=== PATIENT | male | born 1940 | race Caucasian/White ===

== ENCOUNTER 2017-08-29 20:04 | Emergency (ER) | payer MEDICARE ==
[~2017-08-29] VITALS: Ht 182.9 cm; Wt 120.0 kg
[~2017-08-29 20:04] MED LIST: ALLOPURINOL100 MG PO; ALLOPURINOL300 MG OR; AMLODIPINE5 MG PO; ATENOLOL50 MG OR; DILTIAZEM120 MG PO; FINASTERIDE5 MG PO; HYDROCHLOROT12.5 MG PO; ICAPS LUTEI1 OR; KLOR-CON 1010 MEQ PO; LISINOPRIL20 MG PO; MEDDOSEPAK PO; METFORMIN500 MG PO; NEURONTIN300 MG PO; TAMSULOSIN0.4 MG PO; TERAZOSIN5 MG PO; ULTRAM50 MG OR; VALSARTAN80 MG PO
[2017-08-29] MEDS ORDERED: ALLOPURINOL100 MG PO (20:24)
[2017-08-29 20:56] LABS: HEMATOCRIT 42.3 % (39.0-50.0); HEMOGLOBIN 14.6 g/dl (14.0-18.0); IMMATURE GRANULOCYTES 0.3 % (0.0-1.0); MEAN CELL VOLUME 91.6 fL CALC (80.0-100.0); MEAN CORPUSCULAR HGB 31.6 pG CALC (26.0-32.0); MEAN CORPUSCULAR HGB CONC 34.5 g/L CALC (32.0-36.0); NEUT# 3.47 thou/uL (1.82-7.42); RED BLOOD COUNT 4.62 mill/uL (4.70-6.10); RED CELL DISTRI WIDTH 12.8 % (11.5-15.5)
[2017-08-29 21:02] LABS: ALBUMIN 4.6 g/dL (3.2-5.0); ALKALINE PHOSPHATASE 119 u/l (38-126); ANION GAP 19 (6-22 (CALC)); BUN 13 mg/dL (8-23); BUN/CREATININE RATIO 10 (12-20 (CALC)); CALCIUM 9.8 mg/dL (8.4-10.2); CARBON DIOXIDE 23 mmol/l (22-30); CHLORIDE 106 mmol/l (95-108); CREATININE 1.4 mg/dL (0.7-1.3); GFR 49 ML/MIN (>=60 (CALC)); GFR FOR AFR.AMER. 60 ML/MIN (>=60 (CALC)); GLUCOSE 186 mg/dL (82-115); POTASSIUM 3.9 mmol/l (3.5-5.1); SGOT/AST 57 u/l (19-48); SGPT/ALT 44 u/l (11-66); SODIUM 143 mmol/l (137-146); TOTAL PROTEIN 7.5 g/dL (6.3-8.2)
[2017-08-29 23:30] VITALS: BP 148/75
[2017-08-30] MEDS ORDERED: PRECOSE50 MG PO (13:49)
[2017-08-30] MEDS ORDERED: ICAPS PO (13:52)
[2017-08-30] MEDS ORDERED: HYDRALAZINE50 MG PO (15:48)
== END 2017-08-29 23:17 | disposition home or self-care (01) ==
LOC: ED 20:04
PROVIDERS: Emergency Medicine
DX: I10 Essential (primary) hypertension (principal); R07.89 Other chest pain; R51 Headache; H35.30 Unspecified macular degeneration; H54.62 Unqualified visual loss, left eye, normal vision right eye; E11.9 Type 2 diabetes mellitus without complications; M10.9 Gout, unspecified; Z87.442 Personal history of urinary calculi

== ENCOUNTER 2017-08-30 13:10 | Emergency (ER) | payer MEDICARE ==
[~2017-08-30] VITALS: Ht 182.9 cm; Wt 120.0 kg
[2017-08-30] MEDS ORDERED: PRECOSE50 MG PO (13:49)
[2017-08-30] MEDS ORDERED: ICAPS PO (13:52)
[2017-08-30 14:15] LABS: HEMATOCRIT 40.7 % (39.0-50.0); HEMOGLOBIN 14.1 g/dl (14.0-18.0); IMMATURE GRANULOCYTES 0.3 % (0.0-1.0); MEAN CELL VOLUME 91.9 fL CALC (80.0-100.0); MEAN CORPUSCULAR HGB 31.8 pG CALC (26.0-32.0); MEAN CORPUSCULAR HGB CONC 34.6 g/L CALC (32.0-36.0); NEUT# 3.45 thou/uL (1.82-7.42); RED BLOOD COUNT 4.43 mill/uL (4.70-6.10); RED CELL DISTRI WIDTH 13.1 % (11.5-15.5)
[2017-08-30 14:51] LABS: ALBUMIN 4.3 g/dL (3.2-5.0); ALKALINE PHOSPHATASE 88 u/l (38-126); ANION GAP 16 (6-22 (CALC)); BILIRUBIN, TOTAL 1.4 mg/dL (0.0-1.4); BUN 12 mg/dL (8-23); BUN/CREATININE RATIO 9 (12-20 (CALC)); CALCIUM 9.3 mg/dL (8.4-10.2); CARBON DIOXIDE 23 mmol/l (22-30); CHLORIDE 109 mmol/l (95-108); CREATININE 1.3 mg/dL (0.7-1.3); GFR 54 ML/MIN (>=60 (CALC)); GFR FOR AFR.AMER. > 60 ML/MIN (>=60 (CALC)); GLUCOSE 135 mg/dL (82-115); POTASSIUM 3.7 mmol/l (3.5-5.1); SGOT/AST 61 u/l (19-48); SGPT/ALT 43 u/l (11-66); SODIUM 144 mmol/l (137-146); TOTAL PROTEIN 7.1 g/dL (6.3-8.2)
[2017-08-30 15:03] LABS: MYOGLOBIN 142 ng/mL (0 - 121)
[2017-08-30] MEDS ORDERED: HYDRALAZINE50 MG PO (15:48)
[2017-08-30 15:56] VITALS: BP 190/83
== END 2017-08-30 16:14 | disposition home or self-care (01) ==
LOC: ED 13:10
PROVIDERS: Emergency Medicine
DX: I10 Essential (primary) hypertension (principal); R51 Headache; R00.1 Bradycardia, unspecified

== ENCOUNTER 2017-09-19 00:08 | Observation (INO) | payer MEDICARE ==
[~2017-09-19] VITALS: Ht 182.9 cm; Wt 109.4 kg
[~2017-09-19 00:08] MED LIST changes: +HYDRALAZINE50 MG PO; +ICAPS PO; +PRECOSE50 MG PO
--- NOTE | 2017-09-19 00:27 | NUR ---
PT. AMBULATORY WITH STEADY GAIT TO TREATMENT ROOM.
--- NOTE | 2017-09-19 01:20 | NUR ---
BEDRESTING. AWAITING MD SOLIS. DENIES H/A OR PAIN AT THIS TIME
[2017-09-19 02:09] LABS: HEMATOCRIT 42.5 % (39.0-50.0); HEMOGLOBIN 14.8 g/dl (14.0-18.0); IMMATURE GRANULOCYTES 0.3 % (0.0-1.0); MEAN CORPUSCULAR HGB 31.7 pG CALC (26.0-32.0); MEAN CORPUSCULAR HGB CONC 34.8 g/L CALC (32.0-36.0); NEUT# 3.31 thou/uL (1.82-7.42); RED BLOOD COUNT 4.67 mill/uL (4.70-6.10); RED CELL DISTRI WIDTH 12.3 % (11.5-15.5)
--- NOTE | 2017-09-19 02:22 | NUR ---
DENIES CHEST TYLER N AT THIS TIME. STATES IT WAS NOT NEARLY A BAD TONIGHT COMPARED TO VASHTI GUANAKO
[2017-09-19 02:24] LABS: ALBUMIN 4.4 g/dL (3.2-5.0); ALKALINE PHOSPHATASE 115 u/l (38-126); ANION GAP 18 (6-22 (CALC)); BUN 12 mg/dL (8-23); BUN/CREATININE RATIO 8 (12-20 (CALC)); CALCIUM 10.8 mg/dL (8.4-10.2); CARBON DIOXIDE 22 mmol/l (22-30); CHLORIDE 108 mmol/l (95-108); CREATININE 1.4 mg/dL (0.7-1.3); GFR 49 ML/MIN (>=60 (CALC)); GFR FOR AFR.AMER. 60 ML/MIN (>=60 (CALC)); GLUCOSE 118 mg/dL (82-115); POTASSIUM 4.2 mmol/l (3.5-5.1); SGOT/AST 48 u/l (19-48); SGPT/ALT 42 u/l (11-66); SODIUM 143 mmol/l (137-146); TOTAL PROTEIN 7.3 g/dL (6.3-8.2)
[2017-09-19 02:36] LABS: MYOGLOBIN 45 ng/mL (0 - 121)
--- NOTE | 2017-09-19 03:15 | NUR ---
REPORT CALLED TO SEAN MEDINA
--- NOTE | 2017-09-19 03:30 | NUR ---
TO [facility] VIA W/C. ALERT. COOPERATIVE. NO DISTRESS NOTED. DENIES CHEST PAIN
--- NOTE | 2017-09-19 04:40 | NUR ---
RECEIVED FROM ER VIA W/C ACCOMPANIED BY SAM AMADOR, AMBULATING TO BED WITH STEADY GAIT, DX C/P AND UNCONTROLLED HTN. A/O X3, RESPIRATIONS EVEN AND UNLABORED. DENIES CHEST PAIN OR PALPITATIONS, TELE IN PLACE SB 50'S PER ER. B/P 150/76. ORIENTED TO BED CONTROLS AND CALL LIGHT. PO FLUIDS AT BED SIDE. WILL CONTINUE TO MONITOR.
[2017-09-19 04:45] VITALS: BP 150/76
--- NOTE | 2017-09-19 07:16 | NUR ---
BEDSIDE REPORT RECEIVED FROM SEAN MEDINA. PT SUPINE IN BED. REPORTS SEVERE HEADACHE. NITRO PATCH REMOVED BY SEAN MEDINA FROM LEFT UPPER ARM. PT EDUCATED ON POSSIBLE SIDE EFFECTS OF NITRO. PLAN OF CARE DISCUSSED. REPORTING OF CONCERNS ENCOURAGED. CALL LIGHT REVIEWED AND IN REACH. PT STATES UNDERSTANDING.
[2017-09-19 07:25] VITALS: BP 124/65
--- NOTE | 2017-09-19 08:45 | NUR ---
SPOKE WITH DR. HOWELL R/T HEADACHE. ORDER FOR TYLENOL GIVEN. MED ADMINISTERED. WILL CONTINUE TO MONITOR FOR EFFECTIVENESS.
[2017-09-19 10:08] VITALS: BP 149/65
[2017-09-19 10:09] VITALS: BP 149/65
--- NOTE | 2017-09-19 10:59 | NUR ---
DR. HOWELL IN TO SEE PT AT THIS TIME.
--- NOTE | 2017-09-19 13:02 | NUR ---
Discharge instructions given. Patient verbalizes understanding of same. Discharged in stable condition via Ambulatory to Home with spouse. All belongings sent with pt.
== END 2017-09-19 12:54 | disposition home or self-care (01) ==
LOC: ED 00:08 → ED-I 02:00 → ED 03:12 → MS2 03:13
PROVIDERS: Emergency Medicine; ADMIT Internal Medicine; ATTEND Internal Medicine
DX: I16.1 Hypertensive emergency (principal); I10 Essential (primary) hypertension; K21.9 Gastro-esophageal reflux disease without esophagitis; E11.9 Type 2 diabetes mellitus without complications; M10.9 Gout, unspecified; Z87.442 Personal history of urinary calculi; Z87.891 Personal history of nicotine dependence; R07.9 Chest pain, unspecified

== ENCOUNTER 2017-11-04 15:15 | Emergency (ER) | payer MEDICARE ==
[~2017-11-04] VITALS: Ht 182.9 cm; Wt 109.8 kg
[2017-11-04] MEDS ORDERED: AUGMENTIN875TAB PO (15:37)
[2017-11-04 16:55] VITALS: BP 157/74
== END 2017-11-04 16:55 | disposition home or self-care (01) ==
LOC: ED 15:15
DX: S81.852A Open bite, left lower leg, initial encounter (principal); W54.0XXA Bitten by dog, initial encounter; Y93.I9 Activity, other involving external motion; Y92.414 Local residential or business street as the place of occurrence of the external cause

== ENCOUNTER 2017-12-23 08:48 | Observation (INO) | payer MEDICARE ==
[~2017-12-23] VITALS: Ht 182.9 cm; Wt 105.9 kg
[~2017-12-23 08:48] MED LIST changes: +AUGMENTIN875TAB PO
[2017-12-23 09:08] LABS: HEMATOCRIT 45.4 % (39.0-50.0); HEMOGLOBIN 15.6 g/dl (14.0-18.0); IMMATURE GRANULOCYTES 0.3 % (0.0-1.0); MEAN CELL VOLUME 89.9 fL CALC (80.0-100.0); MEAN CORPUSCULAR HGB 30.9 pG CALC (26.0-32.0); MEAN CORPUSCULAR HGB CONC 34.4 g/L CALC (32.0-36.0); NEUT# 3.71 thou/uL (1.82-7.42); RED BLOOD COUNT 5.05 mill/uL (4.70-6.10); RED CELL DISTRI WIDTH 13.4 % (11.5-15.5)
[2017-12-23 09:26] LABS: ALBUMIN 4.6 g/dL (3.2-5.0); ALKALINE PHOSPHATASE 117 u/l (38-126); ANION GAP 20 (6-22 (CALC)); BILIRUBIN, TOTAL 1.5 mg/dL (0.0-1.4); BUN 12 mg/dL (8-23); BUN/CREATININE RATIO 9 (12-20 (CALC)); CARBON DIOXIDE 22 mmol/l (22-30); CHLORIDE 105 mmol/l (95-108); CREATININE 1.5 mg/dL (0.7-1.3); GFR 46 ML/MIN (>=60 (CALC)); GFR FOR AFR.AMER. 55 ML/MIN (>=60 (CALC)); LIPASE 139 u/l (23-300); POTASSIUM 3.8 mmol/l (3.5-5.1); SGOT/AST 56 u/l (19-48); SGPT/ALT 47 u/l (11-66); SODIUM 143 mmol/l (137-146); TOTAL PROTEIN 8.6 g/dL (6.3-8.2)
[2017-12-23 10:15] LABS: URINE BILIRUBIN - DIPSTICK NEGATIVE (NEGATIVE); URINE BLOOD DIPSTICK NEGATIVE (NEGATIVE); URINE CLARITY CLEAR; URINE COLOR YELLOW; URINE GLUCOSE - DIPSTICK NEGATIVE (NEGATIVE); URINE KETONE NEGATIVE (NEGATIVE); URINE LEUK ESTERASE NEGATIVE (NEGATIVE); URINE NITRITE - DIPSTICK NEGATIVE (Negative); URINE PH 6.5 (4.5-8.0); URINE PROTEIN - DIPSTICK NEGATIVE (NEG-TRACE); URINE UROBILINOGEN - DIPSTICK 0.2 E.U./dL (0.2)
[2017-12-23] MEDS ORDERED: JANUVIA100 MG PO (12:22)
[2017-12-23 12:34] VITALS: BP 183/86
[2017-12-23 16:50] VITALS: BP 163/86
[2017-12-23 19:39] VITALS: BP 152/84
[2017-12-24 00:07] VITALS: BP 151/71
[2017-12-24 05:01] VITALS: BP 142/66
[2017-12-24 06:28] LABS: HEMATOCRIT 44.1 % (39.0-50.0); HEMOGLOBIN 15.2 g/dl (14.0-18.0); MEAN CELL VOLUME 89.3 fL CALC (80.0-100.0); MEAN CORPUSCULAR HGB 30.8 pG CALC (26.0-32.0); MEAN CORPUSCULAR HGB CONC 34.5 g/L CALC (32.0-36.0); RED BLOOD COUNT 4.94 mill/uL (4.70-6.10); RED CELL DISTRI WIDTH 13.7 % (11.5-15.5)
[2017-12-24 06:44] LABS: CHOLESTEROL HDL RATIO 4.2 (<4.4 (CALC))
[2017-12-24 06:45] LABS: CREATININE 1.4 mg/dL (0.7-1.3); MAGNESIUM 1.9 mg/dL (1.6-2.3); POTASSIUM 4.3 mmol/l (3.5-5.1)
[2017-12-24 08:46] VITALS: BP 146/77
[2017-12-24 11:00] VITALS: BP 121/74
[2017-12-24] MEDS ORDERED: ADLT ASA LOW81 MG PO (12:50)
[2017-12-24] MEDS ORDERED: RESTORIL7.5 MG PO (12:51)
== END 2017-12-24 14:28 ==
LOC: ED 08:48 → ED-I 10:11 → ED 10:11 → ED-I 11:30 → ED 11:40 → MS2 11:41
PROVIDERS: Family Medicine; Nurse Practitioner Family; ADMIT Internal Medicine; ATTEND Internal Medicine
DX: R07.9 Chest pain, unspecified (principal); I16.0 Hypertensive urgency; I10 Essential (primary) hypertension; E11.9 Type 2 diabetes mellitus without complications; M10.9 Gout, unspecified; H35.30 Unspecified macular degeneration; N40.1 Benign prostatic hyperplasia with lower urinary tract symptoms; R35.0 Frequency of micturition; R39.15 Urgency of urination; G47.00 Insomnia, unspecified; F43.22 Adjustment disorder with anxiety; Z87.442 Personal history of urinary calculi; Z87.891 Personal history of nicotine dependence
CPT/HCPCS: Q9967

== ENCOUNTER → 2018-06-12 | Outpatient (REF) ==
[~2018-06-12] MED LIST changes: +ADLT ASA LOW81 MG PO; +JANUVIA100 MG PO; +RESTORIL7.5 MG PO
== END | disposition home or self-care (01) | DRG 684 ==
LOC: LAB 07:22
PROVIDERS: ATTEND Nurse Practitioner Adult Health
DX: N18.3 Chronic kidney disease, stage 3 (moderate) (principal); E11.9 Type 2 diabetes mellitus without complications; I10 Essential (primary) hypertension

== ENCOUNTER 2018-08-13 06:59 | Day surgery (SDC) | payer MEDICARE ==
[~2018-08-13 06:59] MED LIST changes: +ALPRAZOLAM0.25 MG PO; +BUPROPION300 MG PO
[2018-08-13 09:59] VITALS: BP 157/67
== END 2018-08-13 09:50 | disposition home or self-care (01) ==
LOC: ENDO 06:59 → ORM 13:25 → ENDO 13:25 → ORM 14:15
PROVIDERS: ATTEND Internal Medicine Gastroenterology
PROC: 0D748ZZ Dilation of Esophagogastric Junction, Via Natural or Artificial Opening Endoscopic (ICD-10-PCS; principal; 2018-08-13)
PROC: 0DB78ZX Excision of Stomach, Pylorus, Via Natural or Artificial Opening Endoscopic, Diagnostic (ICD-10-PCS; 2018-08-13)
DX: K22.2 Esophageal obstruction (principal); K29.50 Unspecified chronic gastritis without bleeding; K25.9 Gastric ulcer, unspecified as acute or chronic, without hemorrhage or perforation; B96.81 Helicobacter pylori [H. pylori] as the cause of diseases classified elsewhere; I10 Essential (primary) hypertension; E11.9 Type 2 diabetes mellitus without complications

== ENCOUNTER 2018-08-22 20:58 | Emergency (ER) | payer MEDICARE ==
[~2018-08-22] VITALS: Ht 182.9 cm; Wt 99.2 kg
[2018-08-22 22:14] LABS: HEMATOCRIT 39.7 % (39.0-50.0); HEMOGLOBIN 13.4 g/dl (14.0-18.0); IMMATURE GRANULOCYTES 0.5 % (0.0-5.0); MEAN CELL VOLUME 91.5 fL CALC (80.0-100.0); MEAN CORPUSCULAR HGB 30.9 pG CALC (26.0-32.0); MEAN CORPUSCULAR HGB CONC 33.8 g/L CALC (32.0-36.0); NEUT# 8.68 thou/uL (1.82-7.42); RED BLOOD COUNT 4.34 mill/uL (4.70-6.10); RED CELL DISTRI WIDTH 12.8 % (11.5-15.5)
[2018-08-22 22:35] LABS: BILIRUBIN, TOTAL 0.7 mg/dL (0.0-1.4); CREATININE 1.4 mg/dL (0.7-1.3); POTASSIUM 4.4 mmol/l (3.5-5.1); TOTAL PROTEIN 7.5 g/dL (6.3-8.2)
[2018-08-22] MEDS ORDERED: ZOFRAN ODT4 MG PO (22:47)
[2018-08-22 23:31] LABS: URINE BILIRUBIN - DIPSTICK NEGATIVE (NEGATIVE); URINE BLOOD DIPSTICK NEGATIVE (NEGATIVE); URINE COLOR YELLOW; URINE GLUCOSE - DIPSTICK NEGATIVE (NEGATIVE); URINE KETONE NEGATIVE (NEGATIVE); URINE LEUK ESTERASE NEGATIVE (NEGATIVE); URINE NITRITE - DIPSTICK NEGATIVE (Negative); URINE PROTEIN - DIPSTICK NEGATIVE (NEG-TRACE); URINE UROBILINOGEN - DIPSTICK 0.2 E.U./dL (0.2)
[2018-08-23 00:01] VITALS: BP 143/69
== END 2018-08-22 23:59 | disposition home or self-care (01) ==
LOC: ED 20:58
PROVIDERS: Emergency Medicine
DX: J11.1 Influenza due to unidentified influenza virus with other respiratory manifestations (principal); J02.0 Streptococcal pharyngitis; R11.10 Vomiting, unspecified; R50.9 Fever, unspecified; R55 Syncope and collapse; I10 Essential (primary) hypertension

== ENCOUNTER 2019-10-15 16:54 | Observation (INO) | payer MEDICARE ==
[~2019-10-15] VITALS: Ht 182.9 cm; Wt 100.0 kg
[~2019-10-15 16:54] MED LIST changes: +ZOFRAN ODT4 MG PO
--- NOTE | 2019-10-15 16:54 | NUR ---
PT IMMEADIATELY TO TX AREA VIA WC
--- NOTE | 2019-10-15 17:30 | NUR ---
PT RESTING ON STRETCHER; NO S/S OF DISTRESS NOTED; MONITORING DEVICES IN PLACE; FAMILY AT BEDSIDE
[2019-10-15 17:37] LABS: LIPASE 109 u/l (23-300)
[2019-10-15 17:49] LABS: ACT PARTIAL THROMBO TIME 27.7 SECONDS (20.0-32.5); INTERNATIONAL NORMALIZED RATIO 1.1 RATIO (0.7-1.3); PROTHROMBIN TIME 11.2 SECONDS (9.0-12.5)
[2019-10-15 18:13] LABS: ALBUMIN 4.7 g/dL (3.2-5.0); ALKALINE PHOSPHATASE 110 u/l (38-126); ANION GAP 17 (6-22 (CALC)); BUN 14 mg/dL (8-23); BUN/CREATININE RATIO 11 (12-20 (CALC)); CARBON DIOXIDE 21 mmol/l (22-30); CHLORIDE 106 mmol/l (95-108); CREATININE 1.3 mg/dL (0.7-1.3); GFR 53 ML/MIN (>=60 (CALC)); GFR FOR AFR.AMER. > 60 ML/MIN (>=60 (CALC)); POTASSIUM 4.3 mmol/l (3.5-5.1); SGOT/AST 41 u/l (19-48); SODIUM 140 mmol/l (137-146); TOTAL PROTEIN 8.5 g/dL (6.3-8.2)
[2019-10-15 18:15] LABS: HEMATOCRIT 43.7 % (39.0-50.0); HEMOGLOBIN 14.7 g/dl (14.0-18.0); IMMATURE GRANULOCYTES 0.3 % (0.0-5.0); MEAN CELL VOLUME 89.5 fL CALC (80.0-100.0); MEAN CORPUSCULAR HGB 30.1 pG CALC (26.0-32.0); MEAN CORPUSCULAR HGB CONC 33.6 g/L CALC (32.0-36.0); NEUT# 4.3 thou/uL (1.82-7.42); RED BLOOD COUNT 4.88 mill/uL (4.70-6.10); RED CELL DISTRI WIDTH 13.2 % (11.5-15.5)
--- NOTE | 2019-10-15 18:30 | NUR ---
PT SITTING UP ON STRETCHER; STATES CP HAS IMPROVED; MONITORING DEVICES IN PLACE; CALL LIGHT WITHIN REACH
[2019-10-15 18:31] LABS: BILIRUBIN, TOTAL 1.4 mg/dL (0.0-1.4)
[2019-10-15] MEDS ORDERED: ZOLPIDEM5 M1 PO (18:50)
--- NOTE | 2019-10-15 18:52 | NUR ---
DR JOSEPH AT BEDSIDE TO DISCUSS POC AND PLAN TO ADMIT; FAMILY AT BEDSIDE; MONITORING DEVICES IN PLACE;
--- NOTE | 2019-10-15 19:05 | NUR ---
REPORT GIVEN TO MARJORIE SANDOVAL
[2019-10-15 19:17] LABS: URINE BILIRUBIN - DIPSTICK NEGATIVE (NEGATIVE); URINE BLOOD DIPSTICK NEGATIVE (NEGATIVE); URINE COLOR YELLOW; URINE GLUCOSE - DIPSTICK NEGATIVE (NEGATIVE); URINE KETONE NEGATIVE (NEGATIVE); URINE LEUK ESTERASE NEGATIVE (NEGATIVE); URINE NITRITE - DIPSTICK NEGATIVE (Negative); URINE PROTEIN - DIPSTICK NEGATIVE (NEG-TRACE); URINE SPECIFIC GRAVITY <=1.005; URINE UROBILINOGEN - DIPSTICK 0.2 E.U./dL (0.2)
--- NOTE | 2019-10-15 19:30 | NUR ---
PO CATAPRES GIVEN PER MD ORDER.
--- NOTE | 2019-10-15 19:35 | NUR ---
Admission Note Report Given to: ABEL RN Transported by: Wheelchair X Stretcher Transported with: X Nurse Transporter X Patent IV O2 X Environmental Services Supervisor Location: ICU X [facility]
--- NOTE | 2019-10-15 20:03 | NUR ---
PT. TAKEN TO [facility] FLOOR VIA W/C NO C/O CP OR SOB OFFERED.
--- NOTE | 2019-10-15 20:05 | NUR ---
PT ARRIVED TO THE FLOOR VIA WHEELCHAIR ACCOMPANIED BY STAFF AND FAMILY. PT ALERT AND ORIENTED. PT AMBULATED FROM WHEELCHAIR TO BATHROOM TO BED, WITH A STEADY GATE. VS OBTAINED AND ASSESSMENT COMPLETED. RESPIRATIONS EVEN AND UNLABORED ON RA. LUNGS SOUND CLEAR. PEDAL PULSES STRONG. PT REPORTS HAVING A HEAD ACHE, PT TO BE MEDICATED PER EMAR ORDERS. TELE IN PLACE. PT ORIENTED TO ROOM AND CALL LI SYSTEM. PT PROVIDED WITH A SANDWICH AND YOGERT. SAFETY PRECAUTIONS IN PLACE. WILL CONTINUE TO MONTIOR.
--- NOTE | 2019-10-16 00:52 | NUR ---
PT COMPLAININF OF A HEADACHE NITRO PASTE REMOVED, PT EDUCATED ON MED SCHEDULE. SAFETY PRECAUTIONS IN PLACE. WILL CONTINUE TO MONTIOR.
[2019-10-16 04:44] VITALS: BP 159/75
--- NOTE | 2019-10-16 04:45 | NUR ---
PT RESTING IN BED. NO S/S OF DISTRESS AT THIS TIME. WILL CONTINEU TO MONTIOR.
[2019-10-16 06:38] LABS: CHOLESTEROL HDL RATIO 4.3 (<4.4 (CALC))
[2019-10-16 11:18] VITALS: BP 186/81
[2019-10-16] MEDS ORDERED: XANAX0.5 MG PO (13:57)
[2019-10-16 15:50] VITALS: BP 183/82
--- NOTE | 2019-10-16 17:46 | NUR ---
HEAD TO TO TOE ASSESSMENT COMPLETED. POC DISCUSSED WITH PATIENT. SKIN INTACT. NO C/O PAIN NOR DISCOMFORT. NO RESP DISTRESS NOTED. POSTIVE FOR BOWEL SOUNDS
[2019-10-16 18:37] VITALS: BP 142/76
--- NOTE | 2019-10-16 19:34 | NUR ---
PT. SITTING UP WATCHING TV. NO DISTRESS NOTED; DENIES NEEDS/PAIN. INSTRUCTED TO USE URINAL FOR EVERY VOID TO MEASURE OUTPUT AND VERBALIZES UNDERSTANDING. IV SITE PATENT TO MARY AND TYLER. UPDATED ON POC. CALL LIGHT IS IN REACH. WILL CONTINUE TO MONITOR.
--- NOTE | 2019-10-16 23:05 | NUR ---
PT. RESTING IN BED ON RIGHT SIDE WITH EYES CLOSED; RESP. EVEN AND UNLABORED. CALL LIGHT IS IN REACH. URINAL EMPTIED.
[2019-10-16 23:14] VITALS: BP 144/77
[2019-10-17 01:28] VITALS: BP 162/77
[2019-10-17 03:30] VITALS: BP 126/67
--- NOTE | 2019-10-17 03:32 | NUR ---
REAL ESTATE ASSESSOR IN AT BEDSIDE OBTAINING VS. NO DISTRESS NOTED; CALL LIGHT IS IN REACH.
[2019-10-17 05:19] LABS: HEMATOCRIT 44.8 % (39.0-50.0); MEAN CELL VOLUME 90.1 fL CALC (80.0-100.0); MEAN CORPUSCULAR HGB 30.2 pG CALC (26.0-32.0); MEAN CORPUSCULAR HGB CONC 33.5 g/L CALC (32.0-36.0); RED BLOOD COUNT 4.97 mill/uL (4.70-6.10); RED CELL DISTRI WIDTH 13.2 % (11.5-15.5)
[2019-10-17 05:39] LABS: ANION GAP 15 (6-22 (CALC)); BUN 16 mg/dL (8-23); BUN/CREATININE RATIO 13 (12-20 (CALC)); CARBON DIOXIDE 23 mmol/l (22-30); CHLORIDE 106 mmol/l (95-108); CREATININE 1.2 mg/dL (0.7-1.3); GFR 59 ML/MIN (>=60 (CALC)); GFR FOR AFR.AMER. > 60 ML/MIN (>=60 (CALC)); MAGNESIUM 1.9 mg/dL (1.6-2.3); POTASSIUM 4.1 mmol/l (3.5-5.1); SODIUM 140 mmol/l (137-146)
--- NOTE | 2019-10-17 05:55 | NUR ---
SITTING UP IN BED WITH NO DISTRESS NOTED. DENIES NEEDS/PAIN. URINAL EMPTIED.
[2019-10-17 07:52] VITALS: BP 171/92
--- NOTE | 2019-10-17 07:52 | NUR ---
SHIFT CHANGE REPORT, PT AWAKE ALERT AND ORIENTED, C/O MILD HEADCHE, VITAL SIGNS MEASURED AND RECORDED, AMBULATES INDEPENDENTLY WITH STEADY GAIT, CALL LI IN REACH.
[2019-10-17 09:10] VITALS: BP 133/68
[2019-10-17 11:31] VITALS: BP 118/74
--- NOTE | 2019-10-17 12:00 | NUR ---
BP ELEATED THIS AM DOCUMENTED, ANTIHYPERTENSIVE MED GIVEN IV, BP IMPROVED DOCUMENTED IN VITAL SIGNS.
[2019-10-17] MEDS ORDERED: AMLODIPINE BESYL5 MG PO (12:23)
--- NOTE | 2019-10-17 16:13 | NUR ---
Discharge instructions given. Patient verbalizes understanding of same. Discharged in fair condition via Wheelchair to Home with significant other. All belongings sent with pt.
== END 2019-10-17 16:05 | disposition home or self-care (01) ==
LOC: ED 16:54 → ED-I 19:04 → ED 19:19 → MS2 19:20
PROVIDERS: Nurse Practitioner Family; ADMIT Internal Medicine; ATTEND Internal Medicine
DX: R07.9 Chest pain, unspecified (principal); I16.0 Hypertensive urgency; I12.9 Hypertensive chronic kidney disease with stage 1 through stage 4 chronic kidney disease, or unspecified chronic kidney disease; N18.3 Chronic kidney disease, stage 3 (moderate); F41.8 Other specified anxiety disorders; G47.00 Insomnia, unspecified; M10.9 Gout, unspecified; K21.9 Gastro-esophageal reflux disease without esophagitis; N40.0 Benign prostatic hyperplasia without lower urinary tract symptoms; H35.30 Unspecified macular degeneration; Z87.442 Personal history of urinary calculi; Z87.891 Personal history of nicotine dependence
CPT/HCPCS: G0378

== ENCOUNTER 2019-12-15 | Emergency (ER) | payer MEDICARE ==
[~2019-12-15] MED LIST changes: +AMLODIPINE BESYL5 MG PO; +XANAX0.5 MG PO; +ZOLPIDEM5 M1 PO
[2019-12-15 18:32] LABS: HEMATOCRIT 39.8 % (39.0-50.0); HEMOGLOBIN 13.5 g/dl (14.0-18.0); IMMATURE GRANULOCYTES 0.3 % (0.0-5.0); MEAN CELL VOLUME 88.6 fL CALC (80.0-100.0); MEAN CORPUSCULAR HGB 30.1 pG CALC (26.0-32.0); MEAN CORPUSCULAR HGB CONC 33.9 g/dL CAL (32.0-36.0); NEUT# 6.3 thou/uL (1.82-7.42); RED BLOOD COUNT 4.49 mill/uL (4.70-6.10); RED CELL DISTRI WIDTH 13.6 % (11.5-15.5)
[2019-12-15 18:50] LABS: BILIRUBIN, TOTAL 1.8 mg/dL (0.0-1.4); CREATININE 1.6 mg/dL (0.7-1.3); POTASSIUM 4.6 mmol/l (3.5-5.1); TOTAL PROTEIN 7.4 g/dL (6.3-8.2)
[2019-12-15 20:38] LABS: URINE BILIRUBIN - DIPSTICK NEGATIVE (NEGATIVE); URINE BLOOD DIPSTICK NEGATIVE (NEGATIVE); URINE COLOR YELLOW; URINE GLUCOSE - DIPSTICK NEGATIVE (NEGATIVE); URINE KETONE NEGATIVE (NEGATIVE); URINE LEUK ESTERASE NEGATIVE (NEGATIVE); URINE NITRITE - DIPSTICK NEGATIVE (Negative); URINE PH 5.5 (4.5-8.0); URINE PROTEIN - DIPSTICK NEGATIVE (NEG-TRACE); URINE SPECIFIC GRAVITY >=1.030; URINE UROBILINOGEN - DIPSTICK 0.2 E.U./dL (0.2)
[2019-12-15] MEDS ORDERED: ZOFRAN4 MG/TAB PO (20:50)
[2019-12-15] MEDS ORDERED: LOMOTIL2.5 MG PO (20:50)
== END 2019-12-15 21:14 | disposition home or self-care (01) ==
PROVIDERS: Family Medicine
DX: R10.11 Right upper quadrant pain (principal); R10.13 Epigastric pain; R19.7 Diarrhea, unspecified; I10 Essential (primary) hypertension; E11.9 Type 2 diabetes mellitus without complications

== ENCOUNTER 2021-08-12 14:57 | Emergency (ER) | payer MEDICARE ==
[~2021-08-12] VITALS: Ht 182.9 cm; Wt 113.6 kg
[~2021-08-12 14:57] MED LIST changes: +LOMOTIL2.5 MG PO; +ZOFRAN4 MG/TAB PO
[2021-08-12] MEDS ORDERED: HYDROCO/APAP1 TA9 PO (15:55)
[2021-08-12 16:50] VITALS: BP 164/71
== END 2021-08-12 16:55 | disposition home or self-care (01) ==
LOC: ED 14:57
PROC: 2W39X1Z Immobilization of Left Upper Extremity using Splint (ICD-10-PCS; principal; 2021-08-12)
DX: S42.202A Unspecified fracture of upper end of left humerus, initial encounter for closed fracture (principal); I10 Essential (primary) hypertension; E11.9 Type 2 diabetes mellitus without complications; M10.9 Gout, unspecified; W18.39XA Other fall on same level, initial encounter; Y93.89 Activity, other specified; Y92.009 Unspecified place in unspecified non-institutional (private) residence as the place of occurrence of the external cause

== ENCOUNTER 2022-06-27 06:55 | Day surgery (SDC) | payer MEDICARE ==
[~2022-06-27] VITALS: Ht 182.9 cm; Wt 108.9 kg
[~2022-06-27 06:55] MED LIST changes: +ALLEGRA ALLERGY60 MG PO; +DIOVAN160 MG PO; +DONEPEZIL HYDROC5 MG PO; +EYE VITAMINS PO; +FAMOTIDINE20 M1 PO; +HYDROCO/APAP1 TA9 PO; +NORVASC5 M1 PO; +POTASSIUM CHLO10 MEQ PO; +TRAZODONE50 MG PO; +VOLTAREN - GENE75 MG TOP; +WELLBUTRIN XL300 MG PO; +[UNRECOGNIZED DRUG - REMARK] PO
[2022-06-27 14:09] VITALS: BP 154/77
== END 2022-06-27 11:55 | disposition home or self-care (01) ==
LOC: ORM 06:55
PROVIDERS: ATTEND Urology
PROC: 0VB08ZZ Excision of Prostate, Via Natural or Artificial Opening Endoscopic (ICD-10-PCS; principal; 2022-06-27)
DX: N40.1 Benign prostatic hyperplasia with lower urinary tract symptoms (principal); N13.8 Other obstructive and reflux uropathy; R39.14 Feeling of incomplete bladder emptying; R39.16 Straining to void; R39.12 Poor urinary stream; R35.0 Frequency of micturition; R35.1 Nocturia; I12.9 Hypertensive chronic kidney disease with stage 1 through stage 4 chronic kidney disease, or unspecified chronic kidney disease; N18.31 Chronic kidney disease, stage 3a; Z87.440 Personal history of urinary (tract) infections; Z87.891 Personal history of nicotine dependence
CPT/HCPCS: J1956

== ENCOUNTER 2022-10-21 19:51 | Observation (INO) | payer MEDICARE ==
[2022-10-21] VITALS (15 sets, daily range): BP systolic 138–174; BP diastolic 67–118
[~2022-10-21] VITALS: Ht 182.9 cm; Wt 44.4 kg
[2022-10-21 20:42] LABS: BASO% 0.2 % (0-3); EOS% 0.4 % (0-8); HEMATOCRIT 40.7 % (39.0-50.0); HEMOGLOBIN 13.5 g/dl (14.0-18.0); IMMATURE GRANULOCYTES 0.3 % (0.0-5.0); LYMPH% 12.2 % (15-41); MEAN CELL VOLUME 91.7 fL CALC (80.0-100.0); MEAN CORPUSCULAR HGB 30.4 pG CALC (26.0-32.0); MEAN CORPUSCULAR HGB CONC 33.2 g/dL CAL (32.0-36.0); MONO% 7.1 % (2-13); NEUT# 10.13 thou/uL (1.82-7.42); NEUT% 79.8 % (42-76); RED BLOOD COUNT 4.44 mill/uL (4.70-6.10); RED CELL DISTRI WIDTH 12.5 % (11.5-15.5)
[2022-10-21 20:54] LABS: ALBUMIN 4.4 g/dL (3.2-5.0); BILIRUBIN, TOTAL 2.2 mg/dL (0.2-1.3); CREATININE 1.4 mg/dL (0.7-1.3); POTASSIUM 4.1 mmol/l (3.5-5.1); TOTAL PROTEIN 7.9 g/dL (6.3-8.2)
[2022-10-21 22:26] LABS: URINE BILIRUBIN - DIPSTICK NEGATIVE (NEGATIVE); URINE BLOOD DIPSTICK TRACE-INTACT (NEGATIVE); URINE COLOR YELLOW; URINE GLUCOSE - DIPSTICK NEGATIVE (NEGATIVE); URINE KETONE NEGATIVE (NEGATIVE); URINE PH 5.5 (4.5-8.0); URINE PROTEIN - DIPSTICK TRACE mg/dL (NEG-TRACE); URINE SPECIFIC GRAVITY 1.025; URINE UROBILINOGEN - DIPSTICK 0.2 E.U./dL (0.2)
[2022-10-21 22:30] LABS: URINE LEUK ESTERASE SMALL (NEGATIVE); URINE NITRITE - DIPSTICK POSITIVE (Negative)
[2022-10-21 22:37] LABS: URINE BACTERIA RARE hpf; URINE WBC 20-50 WBC/hpf (0-5)
[2022-10-22] VITALS (9 sets, daily range): BP systolic 136–155; BP diastolic 51–77
[2022-10-23 04:29] VITALS: BP 148/65
[2022-10-23 05:56] LABS: BASO% 0.4 % (0-3); EOS% 3.2 % (0-8); HEMATOCRIT 42.2 % (39.0-50.0); HEMOGLOBIN 13.9 g/dl (14.0-18.0); IMMATURE GRANULOCYTES 0.4 % (0.0-5.0); LYMPH% 23.3 % (15-41); MEAN CELL VOLUME 91.3 fL CALC (80.0-100.0); MEAN CORPUSCULAR HGB 30.1 pG CALC (26.0-32.0); MEAN CORPUSCULAR HGB CONC 32.9 g/dL CAL (32.0-36.0); MONO% 8.9 % (2-13); NEUT# 5.01 thou/uL (1.82-7.42); NEUT% 63.8 % (42-76); RED BLOOD COUNT 4.62 mill/uL (4.70-6.10); RED CELL DISTRI WIDTH 12.5 % (11.5-15.5)
[2022-10-23 06:16] LABS: ALBUMIN 3.9 g/dL (3.2-5.0); ALKALINE PHOSPHATASE 87 u/l (38-126); ANION GAP 9 (6-22 (CALC)); BUN 15 mg/dL (8-23); BUN/CREATININE RATIO 12 (12-20 (CALC)); CARBON DIOXIDE 26 mmol/l (22-30); CHLORIDE 106 mmol/l (95-108); CREATININE 1.2 mg/dL (0.7-1.3); GFR FOR AFR.AMER. > 60 ML/MIN (>=60 (CALC)); GFR OTHER RACES 58 ML/MIN (>=60 (CALC)); POTASSIUM 3.7 mmol/l (3.5-5.1); SGOT/AST 33 u/l (19-48); SODIUM 137 mmol/l (137-146); TOTAL PROTEIN 7.3 g/dL (6.3-8.2)
[2022-10-23 06:18] LABS: BILIRUBIN, TOTAL 1.2 mg/dL (0.2-1.3)
[2022-10-23 06:46] VITALS: BP 146/66
[2022-10-23] MEDS ORDERED: CIPROFLOXACN500 MG PO (10:20)
[2022-10-23] MEDS ORDERED: DITROPAN XL5 MG PO (10:21)
[2022-10-23 10:29] VITALS: BP 137/61
== END 2022-10-23 13:53 | disposition home or self-care (01) ==
LOC: ED 19:51 → ED-I 22:10 → ED 22:26 → MS2 22:27
PROVIDERS: Emergency Medicine; Nurse Practitioner Family; ADMIT Internal Medicine; ATTEND Internal Medicine
DX: N99.89 Other postprocedural complications and disorders of genitourinary system (principal); N39.0 Urinary tract infection, site not specified; I10 Essential (primary) hypertension; E11.40 Type 2 diabetes mellitus with diabetic neuropathy, unspecified; N40.0 Benign prostatic hyperplasia without lower urinary tract symptoms; M10.9 Gout, unspecified; F03.90 Unspecified dementia, unspecified severity, without behavioral disturbance, psychotic disturbance, mood disturbance, and anxiety; R91.8 Other nonspecific abnormal finding of lung field; B96.20 Unspecified Escherichia coli [E. coli] as the cause of diseases classified elsewhere; Y83.8 Other surgical procedures as the cause of abnormal reaction of the patient, or of later complication, without mention of misadventure at the time of the procedure; S09.90XA Unspecified injury of head, initial encounter; W19.XXXA Unspecified fall, initial encounter; Y92.007 Garden or yard of unspecified non-institutional (private) residence as the place of occurrence of the external cause; Z87.891 Personal history of nicotine dependence; Z87.442 Personal history of urinary calculi
CPT/HCPCS: G0378

== ENCOUNTER 2023-05-21 09:10 | Emergency (ER) | payer MEDICARE ==
[~2023-05-21] VITALS: Ht 182.9 cm; Wt 108.0 kg
[~2023-05-21 09:10] MED LIST changes: +CIPROFLOXACN500 MG PO; +DITROPAN XL5 MG PO
[2023-05-21] MEDS ORDERED: VOLTAREN - GENE75 MG PO (10:23)
[2023-05-21] MEDS ORDERED: TRAMADOL HCL50 MG PO ×2 (10:23→10:24)
[2023-05-21 10:33] VITALS: BP 141/77
== END 2023-05-21 10:35 | disposition home or self-care (01) ==
LOC: ED 09:10
DX: S29.011A Strain of muscle and tendon of front wall of thorax, initial encounter (principal); I10 Essential (primary) hypertension; E11.9 Type 2 diabetes mellitus without complications; F03.90 Unspecified dementia, unspecified severity, without behavioral disturbance, psychotic disturbance, mood disturbance, and anxiety; M10.9 Gout, unspecified; X50.0XXA Overexertion from strenuous movement or load, initial encounter; Y93.H2 Activity, gardening and landscaping; Y92.007 Garden or yard of unspecified non-institutional (private) residence as the place of occurrence of the external cause